=== PATIENT | male | born 1985 | race Caucasian/White ===

== ENCOUNTER 2016-06-09 10:53 | Emergency (ER) | payer OTHER ==
--- NOTE | 2016-06-09 11:35 | DIAGNOSTIC IMAGING REPORT ---
PROCEDURE: XR CHEST 1 VIEW INDICATION: CHEST PAIN TECHNIQUE: Portable AP view 11:26 a.m. COMPARISON: 02/07/2016 FINDINGS: Lungs are clear. Heart and mediastinum are normal. Thorax is normal. IMPRESSION: 1. Negative chest.
--- NOTE | 2016-06-09 13:31 | DIAGNOSTIC IMAGING REPORT ---
PROCEDURE: CTA THORAX WITH CONTRAST INDICATION: CHEST PAIN, initial encounter. TECHNIQUE: 75 ml of Isovue 370 was injected intravenously and axial images were obtained of the entire thorax with 3D sagittal and coronal MIP reconstructions. COMPARISON: Chest x-ray 06/09/2016 FINDINGS: No evidence of pulmonary emboli. Normal lung parenchyma without infiltrates or pneumothorax. No adenopathy or effusion. Residual thymus tissue. Normal thoracic aorta without dissection or aneurysm. Heart size is normal. Visualized upper abdomen is unremarkable. No suspicious osseous lesions. IMPRESSION: 1. Normal CT pulmonary angiogram 2. Results discussed with Dr. Field
--- NOTE | 2016-06-09 15:06 | ED NURSING NOTES ---
Clinical Report - Nurses [facility] [address] [place] [address] 06/09/2016 10:54 Patient: SUNITA HUERTAS TRIAGE Triage time 10:58. Acuity: LEVEL 3. Chief Complaint: CHEST DISCOMFORT and (Seen at [facility] yesterday, Called today for his anxiety, and help with DT's. Reproducible mid-sternal pain.). Alert. No acute distress. IGNACIA COMA SCORE: Harrison Coma Scale: 15- eyes open spontaneously (4); best verbal response- oriented x 4 (5); best motor response- obeys commands (6). --11:06 Nano Aleman R.N. 10:58 06/09/16. BP: 160/92. HR: 107. RR: 18. O2 saturation: 98% on room air. Temp: 98.4 F. Pain level now: 11/05. --11:06 Nano Aleman R.N. Weight: 72.5 kg stated. Height/Length: 70 inches Per Patient. BMI: 22.9. --11:01 Nano Aleman R.N. Medications Keppra Oral. --11:01 Nano Aleman R.N. Medication/allergy information source: the patient. --11:06 Nano Aleman R.N. Allergies Penicillin. (unknown, per pt) --11:01 Nano Aleman R.N. History Arrived by EMS. Historian: patient. Primary physician (skylar). This started today. No difficulty breathing, sweating episodes, nausea or vomiting. Treatment OSS ARCHITECT: EMS treatment OSS ARCHITECT verbally communicated and report reviewed. See report. BP: 160 / 90. HR: 107. RR: 20. O2 saturation: 98 % room air. PAST MEDICAL HX: Immunizations: status is unknown. SOCIAL HX: Alcohol use; consumes a large amount of beer daily. ("I've been on a binge, I need help o stop".). No drug use. FALL RISK ASSESSMENT: Fall risk assessment completed. No fall risk identified. NUTRITIONAL RISK ASSESSMENT: The nutritional risk assessment revealed no deficiencies. FUNCTIONAL ASSESSMENT: Functional assessment: no impairments noted. LEARNING NEEDS ASSESSMENT: The learning needs assessment revealed no barriers. SKIN INTEGRITY ASSESSMENT: Skin integrity risk assessment completed. No skin integrity risk identified. --11:06 Nano Aleman R.N. PROBLEMS: Head Injury. Laceration. Fall. Dental Abscess. Seizure. Anxiety Reaction. Panic Attack. Acute Pain. Otitis Externa. Otitis Media. Ear Infection. Immunizations. Alcohol Intoxication. Substance Abuse. Alcoholism. --11: Nano Aleman R.N. ADDITIONAL SURGERIES: Tympanostomy Tubes. --11:02 Nano Aleman R.N. Interventions ID band on patient. To room. --11:06 Nano Aleman R.N. PHYSICAL ASSESSMENT To room via stretcher. Patient gowned. GENERAL / NEURO / PSYCH: Alert. Oriented X 4. Appears anxious. HEENT: Mucous membranes are pink. RESPIRATORY: Respirations not labored. CVS: Pulses within normal limits. Capillary refill less than 2 seconds. GI / : Abdomen nontender. EXTREMITIES: No lower extremity edema. SKIN: Skin is warm and dry. Normal skin turgor. Skin is non-tender. --11:06 Nano Aleman R.N. NURSING PROGRESS NOTES vehicle monitor technician, pulse oximeter and NIBP monitor placed on patient; monitor technician- Lead II; monitor alarms on. Patient gowned. Head of bed elevated. Call light placed in reach. Side rails up x 2. Bed placed in lowest position. Brakes of bed on. Patient ready for evaluation- chart flagged. --11:07 Nano Aleman R.N. 11:22 06/09/2016 Site #1 started via IV in the right antecubital space with an 18g angiocath, with aseptic technique and good blood return; one attempt. Blood drawn: rainbow set. Labeled in the presence of the patient and sent to the lab. Saline lock flushed with 10 mL saline. --11:27 Miky Cueva R.N. 11:27 06/09/16. Patient ID band checked for patient name and birthdate: patient confirmed. Blood samples drawn from the right antecubital space with Vacutainer 18g by nurse per protocol ; labeled in presence of the patient and sent to lab: rainbow set. Line flushed with 5 mL normal saline post blood draw. --11:27 Melanie Small R.N. 11:51 06/09/2016 Started bag #1 1000 mL IV Fluids IV NS (Saline); bolus of 1000 mL wide open via site #1. Allergies verified and confirmed 5 rights. IV patency established. IV site checked: no pain, redness, or swelling. IV flushed thoroughly pre- and post-medication administration. --11:51 Melanie Small R.N. 11:52 06/09/2016 Zofran (Ondansetron HCl) IVP 4 mg given over 2 minute(s) via site #1. Allergies verified and confirmed 5 rights. IV patency established. IV site checked: no pain, redness, or swelling. IV flushed thoroughly pre- and post-medication administration. IVP given by RN. --11:52 Melanie Small R.N. 13:03 06/09/2016 Valium (Diazepam) IVP 10 mg given over 1 minute(s) via site #1. Allergies verified, confirmed 5 rights and sedative warning given to the patient. IV patency established. IV site checked: no pain, redness, or swelling. IV flushed thoroughly pre- and post-medication administration. IVP given by RN. --13:31 Nano Aleman R.N. Patient returned from CT by stretcher with [employer]. (1300). --13:36 Nano Aleman R.N. ( Patient starting to state, "I need inpatient treatment for alcohol withdrawal".). --13:39 Nano Aleman R.N. 13:58 06/09/16. Patient ID band checked for patient name: patient confirmed. Blood samples drawn from the left forearm by tech per protocol ; labeled in presence of the patient and sent to lab: [facility]. --13:58 Nano Aleman R.N. 13:58 06/09/16. BP: 136/89. HR: 91. RR: 18. O2 saturation: 97% on room air. --13:59 Nano Aleman R.N. Patient ID band checked for patient name and birthdate: patient confirmed. Blood samples drawn by tech per protocol ; labeled in presence of the patient and sent to lab: [facility]. (for 2nd trop.). --14:00 ZoniaCharis, BOB Tech1 ( Patient continues to ask for more anxiety medicine. Leads taken off by the patient, every time staff applies them. Discussed need to keep on.). --14:17 Nano Aleman R.N. ( "I think I had a seizure, I passed out, then woke up confused and dazed".). --15:02 Nano Aleman R.N. 15:02 06/09/16. BP: 110/76. HR: 96. RR: 18. O2 saturation: 97% on room air. --15:02 Nano Aleman R.N. DISPOSITION / DISCHARGE 15:15. Condition at departure: improved. No learning barriers present. Patient verbalized understanding. Written instructions provided in Macedonian. The patient was discharged home. He left the Emergency Department ambulatory and via (Calling for a ride, in waiting room.). Medication list reviewed and validated. --15:26 Nano Aleman R.N. 15:14 06/09/16. BP: 118/76. HR: 85. RR: 18. O2 saturation: 97% on room air. Temp: deferred. Pain level now: 0/10. Additional comments: "I have anxiety". 15:02 06/09/16. BP: 110/76. HR: 96. RR: 18. O2 saturation: 97% on room air. 13:58 06/09/16. BP: 136/89. HR: 91. RR: 18. O2 saturation: 97% on room air. 12:30 06/09/16. BP: 156/87. HR: 88. RR: 18. O2 saturation: 97% on room air. 10:58 06/09/16. BP: 160/92. HR: 107. RR: 18. O2 saturation: 98% on room air. Temp: 98.4 F. Pain level now: 8/10. --15:26 Nano Aleman R.N. Locked/Released at 06/09/2016 15:27 by Nano Aleman R.N.
--- NOTE | 2016-06-09 15:06 | ED CLINICAL REPORT ---
Clinical Report - Physicians/Mid Levels [facility] [address] [place] [address] 06/09/2016 10:54 Patient: SUNITA HUERTAS Time Seen: 1058. Arrived- By ambulance. Historian- patient. HISTORY OF PRESENT ILLNESS Chief Complaint: CHEST PAIN. At its maximum, severity described as moderate. When seen in the E.D., it was gone. Modifying factors. Not worsened by anything. Not relieved by anything. It is described as "pain" and it is described as located in the central chest area. No radiation. This started today, is still present but is better now and is now gone (resolved upon arrival in the emergency department). It was abrupt in onset and has been constant. Onset during rest. No nausea, vomiting, difficulty breathing or diaphoresis. No additional chest pain. Similar symptoms previously: None. Recent medical care: The patient was seen recently in the emergency department (yesterday). REVIEW OF SYSTEMS No fever, chills or skin rash. All systems otherwise negative, except as recorded above. PAST HISTORY See nurses notes. Medications: Keppra Oral. Allergies: Penicillin. (unknown, per pt). SOCIAL HISTORY Never smoker. Alcohol use. No drug use. No recent travel. Is a local resident. FAMILY HISTORY Negative. No history of heart disease. ADDITIONAL NOTES The nursing notes have been reviewed. PHYSICAL EXAM Vital Signs: 06/09/2016 10:58 BP: 160/92. HR: 107. RR: 18. O2 saturation: 98%. Temp: 98.4 F. Pain level now: 8/10. Oxygen saturation normal. Appearance: Alert. Oriented X3. No acute distress. Eyes: Pupils equal, round and reactive to light. Eyes normal inspection. ENT: Ears normal. Nose normal. Pharynx normal. Neck: Normal inspection. Neck supple. CVS: Normal heart rate and rhythm. Heart sounds normal. Pulses normal. Respiratory: No respiratory distress. Breath sounds normal. No rales, rhonchi or wheezes. Abdomen: Soft and nontender. Bowel sounds normal. No mass. Back: Normal external inspection. Skin: Skin warm and dry. Normal skin color. No rash. Normal skin turgor. Extremities: Extremities exhibit normal ROM. No lower extremity edema. LABS, X-RAYS, AND EKG EKG: No acute process. No acute ischemia. Normal EKG. Rate: 104. Tachycardia. Normal P waves. Normal RENETTA. Normal QRS complex. Normal axis. Normal ST and T waves, QT and QTc. sinus tach. The study has been interpreted contemporaneously. The study has been independently viewed by me. The EKG appears to be a good tracing. Chest X-ray: (PROCEDURE: XR CHEST 1 VIEW INDICATION: CHEST PAIN TECHNIQUE: Portable AP view 11:26 a.m. COMPARISON: 02/07/2016 FINDINGS: Lungs are clear. Heart and mediastinum are normal. Thorax is normal. IMPRESSION: 1. Negative chest.). Views: PA. The X-rays were independently viewed by me, interpreted by the radiologist and discussed with the radiologist. Chest CT: (PROCEDURE: CTA THORAX WITH CONTRAST INDICATION: CHEST PAIN, initial encounter. TECHNIQUE: 75 ml of Isovue 370 was injected intravenously and axial images were obtained of the entire thorax with 3D sagittal and coronal MIP reconstructions. COMPARISON: Chest x-ray 06/09/2016 FINDINGS: No evidence of pulmonary emboli. Normal lung parenchyma without infiltrates or pneumothorax. No adenopathy or effusion. Residual thymus tissue. Normal thoracic aorta without dissection or aneurysm. Heart size is normal. Visualized upper abdomen is unremarkable. No suspicious osseous lesions. IMPRESSION: 1. Normal CT pulmonary angiogram). The study was independently viewed by me and interpreted by the radiologist. The study was discussed with the radiologist (via phone and pacs). Laboratory Tests: UA-Culture if indicated: (FUNMI: 06/09/2016 12:25) ( MsgRcvd 06/09/2016 12:42) Final results Test Result Flag Units (Reference) URINE COLOR YELLOW URINE APPEARANCE CLEAR URINE GLUCOSE NEGATIVE (NEGATIVE) URINE BILIRUBIN NEGATIVE (NEGATIVE) URINE KETONE NEGATIVE (NEGATIVE) URINE SPECIFIC GRAVITY 1.015 (1.010-1.030) URINE PH 6.0 (5.0-8.0) URINE PROTEIN 2+ (NEGATIVE) URINE UROBILINOGEN 0.2 EU/dL (0.2-1.0) URINE NITRITE NEGATIVE (NEGATIVE) URINE BLOOD 3+ (NEGATIVE) URINE LEUK ESTERASE NEGATIVE (NEGATIVE) URINE RBC NONE SEEN rbc/hpf (0-1) URINE WBC 0-1 wbc/hpf (0-1) URINE EPITHELIAL CELLS NONE SEEN EPI/hpf (0-5) URINE BACTERIA NONE SEEN (NONE SEEN) URINE COMMENT CULT NOT INDICATED URINE CULTURES ARE SET-UP BASED ON THE FOLLOWING CRITERIA:POSITIVE NITRITEPOSITIVE LEUKOCYTE ESTERASEGREATER THAN 10 WHITE BLOOD CELLSMODERATE (2+) OR GREATER BACTERIA CBC w Diff: (FUNMI: 06/09/2016 11:22) ( [facility] 06/09/2016 11:39) Final results Test Result Flag Units (Reference) WHITE BLOOD COUNT 8.4 K/uL (4.5-11.5) RED BLOOD COUNT 5.14 M/uL (4.50-5.90) HEMOGLOBIN 16.0 gm/dL (13.5-17.5) HEMATOCRIT 47.9 % (41.0-53.0) MEAN CELL VOLUME 93 fL (80-100) MEAN CORPUSCULAR HGB 31 pg (26-34) MEAN CORPUSCULAR HGB CONC 33 g/dL (31-37) RED CELL DISTRIBUTION WIDTH 14.3 % (11.6-14.8) PLATELET COUNT 255 K/uL (150-400) NEUTROPHIL % 81.9 H % (50-75) LYMPH % 11.6 L % (25-40) MONO % 5.1 % (3-14) EOSINOPHIL % 0.8 % (0-4) BASOPHIL % 0.6 % (0-2) PT with INR: (FUNMI: 06/09/2016 11:22) ( MsgRcvd 06/09/2016 11:44) Final results Test Result Flag Units (Reference) INR 0.9 (0.8-1.2) Low Intensity Therapy: INR 1.5-2.0 PT range 18.5-23.1Mod.Intensity Therapy: INR 2.0-3.0 PT range 23.1-31.5High Intensity Therapy: INR 2.5-3.5 PT range 27.4-35.5High Intensity Therapy 2: INR 3.0-4.0 PT range 31.5-39.3 APTT 28 SECONDS (24-34) D-DIMER QUANTITATIVE 3.01 H ug/mLFEU (0.27-0.52) The primary value of this quantitative assay relates toits negative predictive value (i.e. exclusion) of pulmonaryembolism/deep vein thrombosis/DIC.Elevated levels of d-dimer may also occur with:, age, cancer, inflammation, liver disease,post-op, infection, hematoma, coronary disease, peripheralarteriopathy, bleeding disorders and thrombolytic treatment.Results should be correlated with other clinical andradiological data.Testing Methodology: Latex Immunoassay Troponin-I: (FUNMI: 06/09/2016 13:55) ( [facility] 06/09/2016 15:01) Final results Test Result Flag Units (Reference) TROPONIN I 0.05 ng/mL (0.00-1.5) TROPONIN REFERENCE RANGE:<0.1 NEGATIVE0.1-1.5 INDETERMINANT>1.5 POSITIVE Urine Drug Screen: (FUNMI: 06/09/2016 12:25) ( [facility] 06/09/2016 13:12) Final results Test Result Flag Units (Reference) AMPHETAMINE/METHAMPHETAMINE NEGATIVE (NEGATIVE) BARBITURATE NEGATIVE (NEGATIVE) BENZODIAZEPINE POSITIVE H (NEGATIVE) CANNABINOID NEGATIVE (NEGATIVE) COCAINE NEGATIVE (NEGATIVE) ECSTASY NEGATIVE (NEGATIVE) METHADONE NEGATIVE (NEGATIVE) OPIATE NEGATIVE (NEGATIVE) The urine drug screen is a qualitative screening test fordrug overdose and abuse. All screen results should beconsidered as presumptive.Drugs screened for are as follows:BenzodiazepinesCocaineAmphetamines/MetamphetaminesTHC (Tetrahydrocannabinol)OpiatesBarbituratesEcstasyMethadonePositive results are unconfirmed. For confirmation, notifythe lab for the specimen to be sent to the reference lab.All confirmations must be performed by a differentmethodology.The ingestion of natural herbal and plant productscontaining Ephedra/Ephedra metabolites can produce in urineone or more substances capable of cross reacting withamphetamine/methamphetamine immunoassays. These testsprovide a preliminary result only. A more specificalternative chemical method must be used to obtain aconfirmed analytical result. BNP: (FUNMI: 06/09/2016 11:22) ( MsgRcvd 06/09/2016 11:51) Final results Test Result Flag Units (Reference) B-TYPE NATRIURETIC PEPTIDE < 5.0 L pg/ml (5-100) CMP: (FUNMI: 06/09/2016 11:22) ( MsgRcvd 06/09/2016 12:04) Final results Test Result Flag Units (Reference) GLUCOSE 99 mg/dL (70-110) BUN 7 mg/dL (7-18) CREATININE 0.8 mg/dL (0.6-1.3) Estimated GFR >60 mL/min Estimated GFR- >60 mL/min Note: Persistent reduction over 3 months in eGFR<60 mL/min/1.73 m2 defines CKD. Patients with eGFR values>=60 mL/min/1.73 m2 may also have CKD if evidence ofpersistent proteinuria. Additional information may be foundat www.kidney.org. SODIUM 140 mmol/L (136-145) POTASSIUM 3.8 mmol/L (3.5-5.1) CHLORIDE 100 mmol/L (98-107) CARBON DIOXIDE 28 mmol/L (21-32) CALCIUM 8.7 mg/dL (8.5-10.1) TOTAL PROTEIN 8.3 H g/dL (6.4-8.2) ALBUMIN 4.3 g/dL (3.3-5.0) BILIRUBIN, TOTAL 0.4 mg/dL (0.0-1.0) ALKALINE PHOSPHATASE 67 U/L (46-116) AST (SGOT) 278 H U/L (15-37) ALT (SGPT) 156 H U/L (12-78) TROPONIN I <0.05 ng/mL (0.00-1.5) TROPONIN REFERENCE RANGE:<0.1 NEGATIVE0.1-1.5 INDETERMINANT>1.5 POSITIVE . PROGRESS AND PROCEDURES Course of Care: patient is a 30 yo male with hx of alcohol dependence presenting for evaluation of chest pain. Patient reports also having "DTs." When asked to clarify what he means, patient explained he is having "delirium tremens." Medically patient does not have this clinical presentation. Patient does not have autonomic instability and is not altered. He is able to tell me where his is, who the president is, place, and time. Spoke with patient about controlled substances in the ED. Patient agreed that if he cooperates with checking on his heart and lungs, he would be allowed to have a dose of valium. Other than tachycardia, no other signs of withdrawal noted. patient yelling "take the fucking IV out! The doctor isn't doing anything for me." Reminded patient about what our agreement was when he first came in. Security called for patient's escalating aggressive behavior. Patient reporting seizure. States he went out of it then woke up. Not post-ictal. No loss of continence. Has been sinus on the monitor. No tachycardia throughout the entire reported event. No tongue injury. Do not feel patient had a seizure. Suspect secondary gain. CT angio negative. Do not feel pain due to PE work up for troponin x 2 is negative. did have to call lab to check on results as they did not result in a timely manor. Do not feel patient is having an AMI or PE. Patient is stable for outpatient treatment and management. Resources provided for alcohol abuse. Disposition: Discharged. Condition: good. CLINICAL IMPRESSION Chest pain characterized as "discomfort" .12 lead EKG performed. 06/09/2016 13:58 BP: 136/89. HR: 91. RR: 18. O2 saturation: 97%. Blood pressure normal. Oxygen saturation normal. Alcohol withdrawal with agitation (acute). INSTRUCTIONS (Please contact your local AA. Help is available if are willing to accept it.). Warnings: GENERAL WARNINGS: Return or contact your physician immediately if your condition worsens or changes unexpectedly, if not improving as expected, or if other problems arise. SPECIFICALLY, return if you develop chest, neck, jaw, shoulder, arm, or back pain, difficulty breathing, a fluttering sensation in your chest, lightheadedness, fainting, excessive fatigue, or sudden sweating. Your Current Medications: CONTINUE TAKING THE FOLLOWING MEDICATIONS: Keppra Oral. Follow-up: Return to the emergency department as needed. Follow up with a merchandise flow associate in three days. Reason for referral: recheck today's concerns. Follow up with your doctor in two days. Reason for referral: recheck today's concerns. Summary of care provided to patient via paper. Screening today revealed the patient's blood pressure to be in the normal range. The patient should follow up with a primary care provider for blood pressure management. Understanding of the discharge instructions verbalized by patient. Follow-up with: [facility], , , [address] [place] [address], , [place], Follow up. Reason for referral: contact if you do not have a primary care doctor. Summary of care provided to patient via paper. (Electronically signed by Wayne Field Dr. 06/09/2016 15:49)
--- NOTE | 2016-06-09 15:06 | ED ORDER SUMMARY ---
..... Patient: SUNITA HUERTAS OrderSheet [facility] VisitID: [id number] [place] [address] 30y, M Registration Date/Time: 06/09/2016 ORDER SHEET Weight: 72.5 kg (stated) Allergies: Penicillin GENERAL ORDERS: Chest 1V Urgent (10:57 06/09/2016 Kaykay Scott) (Ack 11:00 KHoerner) (11:45 RFay) Requirements Manager (Continuous) (CP) (10:57 06/09/2016 Kaykay Scott) (Ack 10:59 KHoerner) (11:01 MWinterer R.N.) CBC w Diff Urgent (10:58 06/09/2016 Kaykay Scott) (Ack 10:59 KHoerner) (11:27 KWilliams R.N.) CMP Urgent (10:58 06/09/2016 Kaykay Scott) (Ack 10:59 KHoerner) (11:27 KWilliams R.N.) UA-Culture if indicated Urgent (10:58 06/09/2016 Kaykay Scott) (Ack 10:59 KHoerner) (12:57 SRoberts R.N.) PT with INR Urgent (10:58 06/09/2016 Kaykay Scott) (Ack 11:00 KHoerner) (11:27 KWilliams R.N.) PTT Urgent (10:58 06/09/2016 Kaykay Scott) (Ack 11:00 KHoerner) (11:27 KWilliams R.N.) Troponin-I Urgent (10:58 06/09/2016 Kaykay Scott) (Ack 11:00 KHoerner) (11:27 GUILHERMEilliams R.N.) D-Dimer Urgent (10:58 06/09/2016 Kaykay Scott) (Ack 11:00 KHoerner) (11:27 KWilliams R.N.) BNP Urgent (10:58 06/09/2016 Kaykay Scott) (Ack 11:00 KHoerner) (11:27 KWilliams R.N.) Urine Drug Screen Urgent (10:58 06/09/2016 Kaykay Scott) (Ack 11:00 KHoerner) (12:57 SRgraham R.N.) Pulse oximeter (10:58 06/09/2016 Kaykay Scott) (Ack 10:59 KHoerner) (11:01 MWinterer R.N.) EKG - ER Stat (10:58 06/09/2016 Kaykay Scott) (Ack 10:59 KHoerner) (11:08 SRgraham R.N.) (11:08 KHoerner) NPO (10:58 06/09/2016 Kaykay Scott) (Ack 10:59 DARRICKoerner) (11:01 MWinterer R.N.) CTA Thorax w Cont (No) (gfr > 60) Urgent (12:41 06/09/2016 Kaykay Scott) (Ack 12:45 DARRICKoerner) (13:12 RFay) Troponin-I (july draw now) Urgent (13:39 06/09/2016 Kaykay Scott) (Ack 13:40 KHoerner) (13:59 LNations ER Tech1) MEDICATION ORDERS: IV FLUIDS: IV Saline Lock (10:58 06/09/2016 Kaykay Scott) (Ack 11:08 Sterling R.N.) (11:27 Jayant R.N.) IV NS : initial bolus 1000 mL (1000 mL/hr), then none - for X1 (NOW) (11:07 06/09/2016 aKykay Scott) (Ack 11:08 Sterling R.N.) (11:51 Rosemary R.N.) Zofran IV 4 mg (NOW) (11:40 06/09/2016 Kaykay Scott) (Ack 11:45 Sterling R.N.) (11:52 Rosemary R.N.) Valium IV 10 mg (HIGH ALERT MEDICATION, NOW) (12:41 06/09/2016 Kaykay Scott) (Ack 12:56 Sterling R.N.) (13:31 Sterling R.N.) ORDER SHEET NOTES: [Electronically signed by Nano Aleman R.N. (15:27 06/09/2016)] [Electronically signed by Wayne Field Dr. (15:49 06/09/2016)] [Electronically locked/signed by Nano Aleman R.N. (15:06/09/2016)]
--- NOTE | 2016-06-09 15:06 | ED ORDER SUMMARY ---
..... Patient: SUNITA HUERTAS OrderSheet [facility] VisitID: [id number] [place] [address] 30y, M Registration Date/Time: 06/09/2016 ORDER SHEET Weight: 72.5 kg (stated) Allergies: Penicillin GENERAL ORDERS: Chest 1V Urgent (10:57 06/09/2016 Kyakay Scott) (Ack 11:00 KHoerner) (11:45 RFay) Policy Director (Continuous) (CP) (10:57 06/09/2016 Kaykay Scott) (Ack 10:59 KHoerner) (11:01 MWinterer R.N.) CBC w Diff Urgent (10:58 06/09/2016 Kaykay Scott) (Ack 10:59 KHoerner) (11:27 KWilliams R.N.) CMP Urgent (10:58 06/09/2016 Kaykay Scott) (Ack 10:59 KHoerner) (11:27 KWilliams R.N.) UA-Culture if indicated Urgent (10:58 06/09/2016 Kaykay Scott) (Ack 10:59 KHoerner) (12:57 SRoberts R.N.) PT with INR Urgent (10:58 06/09/2016 Kaykay Scott) (Ack 11:00 KHoerner) (11:27 KWilliams R.N.) PTT Urgent (10:58 06/09/2016 Kaykay Scott) (Ack 11:00 KHoerner) (11:27 KWilliams R.N.) Troponin-I Urgent (10:58 06/09/2016 Kaykay Scott) (Ack 11:00 KHoerner) (11:27 GUILHERMEilliams R.N.) D-Dimer Urgent (10:58 06/09/2016 Kaykay Scott) (Ack 11:00 KHoerner) (11:27 KWilliams R.N.) BNP Urgent (10:58 06/09/2016 Kaykay Scott) (Ack 11:00 KHoerner) (11:27 KWilliams R.N.) Urine Drug Screen Urgent (10:58 06/09/2016 Kayaky Scott) (Ack 11:00 KHoerner) (12:57 SRgraham R.N.) Pulse oximeter (10:58 06/09/2016 Kaykay Scott) (Ack 10:59 KHoerner) (11:01 MWinterer R.N.) EKG - ER Stat (10:58 06/09/2016 Kaykay Scott) (Ack 10:59 KHoerner) (11:08 SRgraham R.N.) (11:08 KHoerner) NPO (10:58 06/09/2016 Kaykay Scott) (Ack 10:59 DARRICKoerner) (11:01 MWinterer R.N.) CTA Thorax w Cont (No) (gfr > 60) Urgent (12:41 06/09/2016 Kaykay Scott) (Ack 12:45 DARRICKoerner) (13:12 RFay) Troponin-I (july draw now) Urgent (13:39 06/09/2016 Kaykay Scott) (Ack 13:40 KHoerner) (13:59 LNations ER Tech1) MEDICATION ORDERS: IV FLUIDS: IV Saline Lock (10:58 06/09/2016 Kaykay Scott) (Ack 11:08 Sterling R.N.) (11:27 Jayant R.N.) IV NS : initial bolus 1000 mL (1000 mL/hr), then none - for X1 (NOW) (11:07 06/09/2016 Kaykay Scott) (Ack 11:08 Sterling R.N.) (11:51 Rosemary R.N.) Zofran IV 4 mg (NOW) (11:40 06/09/2016 Kaykay Scott) (Ack 11:45 Sterling R.N.) (11:52 Rosemary R.N.) Valium IV 10 mg (HIGH ALERT MEDICATION, NOW) (12:41 06/09/2016 Kaykay Scott) (Ack 12:56 Sterling R.N.) (13:31 Sterling R.N.) ORDER SHEET NOTES: [Electronically signed by Nano Aleman R.N. (15:27 06/09/2016)] [Electronically signed by Wayne Field Dr. (15:49 06/09/2016)] [Electronically locked/signed by Nano Aleman R.N. (15:06/09/2016)]
--- NOTE | 2016-06-09 15:06 | ED NURSING NOTES ---
Clinical Report - Nurses [facility] [address] [place] [address] 06/09/2016 10:54 Patient: SUNITA HUERTAS TRIAGE Triage time 10:58. Acuity: LEVEL 3. Chief Complaint: CHEST DISCOMFORT and (Seen at [place] yesterday, Called today for his anxiety, and help with DT's. Reproducible mid-sternal pain.). Alert. No acute distress. IGNACIA COMA SCORE: Velva Coma Scale: 15- eyes open spontaneously (4); best verbal response- oriented x 4 (5); best motor response- obeys commands (6). --11:06 Nano Aleman R.N. 10:58 06/09/16. BP: 160/92. HR: 107. RR: 18. O2 saturation: 98% on room air. Temp: 98.4 F. Pain level now: 11/05. --11:06 Nano Aleman R.N. Weight: 72.5 kg stated. Height/Length: 70 inches Per Patient. BMI: 22.9. --11:01 Nano Aleman R.N. Medications Keppra Oral. --11:01 Nano Aleman R.N. Medication/allergy information source: the patient. --11:06 Nano Aleman R.N. Allergies Penicillin. (unknown, per pt) --11:01 Nano Aleman R.N. History Arrived by EMS. Historian: patient. Primary physician (skylar). This started today. No difficulty breathing, sweating episodes, nausea or vomiting. Treatment UNATTENDED GROUND SENSOR SPECIALIST: EMS treatment UNATTENDED GROUND SENSOR SPECIALIST verbally communicated and report reviewed. See report. BP: 160 / 90. HR: 107. RR: 20. O2 saturation: 98 % room air. PAST MEDICAL HX: Immunizations: status is unknown. SOCIAL HX: Alcohol use; consumes a large amount of beer daily. ("I've been on a binge, I need help o stop".). No drug use. FALL RISK ASSESSMENT: Fall risk assessment completed. No fall risk identified. NUTRITIONAL RISK ASSESSMENT: The nutritional risk assessment revealed no deficiencies. FUNCTIONAL ASSESSMENT: Functional assessment: no impairments noted. LEARNING NEEDS ASSESSMENT: The learning needs assessment revealed no barriers. SKIN INTEGRITY ASSESSMENT: Skin integrity risk assessment completed. No skin integrity risk identified. --11:06 Nano Aleman R.N. PROBLEMS: Head Injury. Laceration. Fall. Dental Abscess. Seizure. Anxiety Reaction. Panic Attack. Acute Pain. Otitis Externa. Otitis Media. Ear Infection. Immunizations. Alcohol Intoxication. Substance Abuse. Alcoholism. --11: Nano Aleman R.N. ADDITIONAL SURGERIES: Tympanostomy Tubes. --11:02 Nano Aleman R.N. Interventions ID band on patient. To room. --11:06 Nano Aleman R.N. PHYSICAL ASSESSMENT To room via stretcher. Patient gowned. GENERAL / NEURO / PSYCH: Alert. Oriented X 4. Appears anxious. HEENT: Mucous membranes are pink. RESPIRATORY: Respirations not labored. CVS: Pulses within normal limits. Capillary refill less than 2 seconds. GI / : Abdomen nontender. EXTREMITIES: No lower extremity edema. SKIN: Skin is warm and dry. Normal skin turgor. Skin is non-tender. --11:06 Nano Aleman R.N. NURSING PROGRESS NOTES air sampling and monitoring, pulse oximeter and NIBP monitor placed on patient; cardiac monitor technician- Lead II; monitor alarms on. Patient gowned. Head of bed elevated. Call light placed in reach. Side rails up x 2. Bed placed in lowest position. Brakes of bed on. Patient ready for evaluation- chart flagged. --11:07 Nano Aleman R.N. 11:22 06/09/2016 Site #1 started via IV in the right antecubital space with an 18g angiocath, with aseptic technique and good blood return; one attempt. Blood drawn: rainbow set. Labeled in the presence of the patient and sent to the lab. Saline lock flushed with 10 mL saline. --11:27 Miky Cueva R.N. 11:27 06/09/16. Patient ID band checked for patient name and birthdate: patient confirmed. Blood samples drawn from the right antecubital space with Vacutainer 18g by nurse per protocol ; labeled in presence of the patient and sent to lab: rainbow set. Line flushed with 5 mL normal saline post blood draw. --11:27 Melanie Small R.N. 11:51 06/09/2016 Started bag #1 1000 mL IV Fluids IV NS (Saline); bolus of 1000 mL wide open via site #1. Allergies verified and confirmed 5 rights. IV patency established. IV site checked: no pain, redness, or swelling. IV flushed thoroughly pre- and post-medication administration. --11:51 Melanie Small R.N. 11:52 06/09/2016 Zofran (Ondansetron HCl) IVP 4 mg given over 2 minute(s) via site #1. Allergies verified and confirmed 5 rights. IV patency established. IV site checked: no pain, redness, or swelling. IV flushed thoroughly pre- and post-medication administration. IVP given by RN. --11:52 Melanie Small R.N. 13:03 06/09/2016 Valium (Diazepam) IVP 10 mg given over 1 minute(s) via site #1. Allergies verified, confirmed 5 rights and sedative warning given to the patient. IV patency established. IV site checked: no pain, redness, or swelling. IV flushed thoroughly pre- and post-medication administration. IVP given by RN. --13:31 Nano Aleman R.N. Patient returned from CT by stretcher with V-Key. (1300). --13:36 Nano Aleman R.N. ( Patient starting to state, "I need inpatient treatment for alcohol withdrawal".). --13:39 Nano Aleman R.N. 13:58 06/09/16. Patient ID band checked for patient name: patient confirmed. Blood samples drawn from the left forearm by tech per protocol ; labeled in presence of the patient and sent to lab: [facility]). --13:58 Nano Aleman R.N. 13:58 06/09/16. BP: 136/89. HR: 91. RR: 18. O2 saturation: 97% on room air. --13:59 Nano Aleman R.N. Patient ID band checked for patient name and birthdate: patient confirmed. Blood samples drawn by tech per protocol ; labeled in presence of the patient and sent to lab: [facility]. (for 2nd trop.). --14:00 ZoniaCharis, BOB Tech1 ( Patient continues to ask for more anxiety medicine. Leads taken off by the patient, every time staff applies them. Discussed need to keep on.). --14:17 Nano Aleman R.N. ( "I think I had a seizure, I passed out, then woke up confused and dazed".). --15:02 Nano Aleman R.N. 15:02 06/09/16. BP: 110/76. HR: 96. RR: 18. O2 saturation: 97% on room air. --15:02 Nano Aleman R.N. DISPOSITION / DISCHARGE 15:15. Condition at departure: improved. No learning barriers present. Patient verbalized understanding. Written instructions provided in Bel[place]ian. The patient was discharged home. He left the Emergency Department ambulatory and via (Calling for a ride, in waiting room.). Medication list reviewed and validated. --15:26 Nano Aleman R.N. 15:14 06/09/16. BP: 118/76. HR: 85. RR: 18. O2 saturation: 97% on room air. Temp: deferred. Pain level now: 0/10. Additional comments: "I have anxiety". 15:02 06/09/16. BP: 110/76. HR: 96. RR: 18. O2 saturation: 97% on room air. 13:58 06/09/16. BP: 136/89. HR: 91. RR: 18. O2 saturation: 97% on room air. 12:30 06/09/16. BP: 156/87. HR: 88. RR: 18. O2 saturation: 97% on room air. 10:58 06/09/16. BP: 160/92. HR: 107. RR: 18. O2 saturation: 98% on room air. Temp: 98.4 F. Pain level now: 8/10. --15:26 Nano Aleman R.N. Locked/Released at 06/09/2016 15:27 by Nano Aleman R.N.
--- NOTE | 2016-06-09 15:49 | ED MAR SUMMARY ---
..... Medication Administration Record [facility] [address] [place] [address] Patient: SUNITA HUERTAS Visit ID: [id number] 30y, M Weight: 72.5 kg Height/Length: 70 in BMI: 22.9 ALLERGIES: Penicillin Start 11:51 06/09/2016 Melanie Small R.N. Medication Administered: IV NS (SALINE), Dose: IV Fluids, Bolus: 1000 mL wide open, Dispensed: 1000 mL bag, Site: #1 right AC. Medication Ordered: IV NS : initial bolus 1000 mL (1000 mL/hr), then none - for X1 (NOW). Given 11:52 06/09/2016 Melanie Small R.N. Medication Administered: ZOFRAN [IVP] (ONDANSETRON HCL), Dose: 4 mg IVP over 2 minute(s), Site: #1 right AC. Medication Ordered: Zofran IV 4 mg (NOW). Given 13:03 06/09/2016 Nano Aleman R.N. Medication Administered: VALIUM [IVP] (DIAZEPAM), Dose: 10 mg IVP over 1 minute(s), Site: #1 right AC. Medication Ordered: Valium IV 10 mg (HIGH ALERT MEDICATION, NOW).
--- NOTE | 2016-06-09 15:49 | ED MAR SUMMARY ---
..... Medication Administration Record [facility] [address] [place] [address] Patient: SUNITA HUERTAS Visit ID: [id number] 30y, M Weight: 72.5 kg Height/Length: 70 in BMI: 22.9 ALLERGIES: Penicillin Start 11:51 06/09/2016 Melanie Small R.N. Medication Administered: IV NS (SALINE), Dose: IV Fluids, Bolus: 1000 mL wide open, Dispensed: 1000 mL bag, Site: #1 right AC. Medication Ordered: IV NS : initial bolus 1000 mL (1000 mL/hr), then none - for X1 (NOW). Given 11:52 06/09/2016 Melanie Small R.N. Medication Administered: ZOFRAN [IVP] (ONDANSETRON HCL), Dose: 4 mg IVP over 2 minute(s), Site: #1 right AC. Medication Ordered: Zofran IV 4 mg (NOW). Given 13:03 06/09/2016 Nano Aleman R.N. Medication Administered: VALIUM [IVP] (DIAZEPAM), Dose: 10 mg IVP over 1 minute(s), Site: #1 right AC. Medication Ordered: Valium IV 10 mg (HIGH ALERT MEDICATION, NOW).
--- NOTE | 2016-06-09 15:49 | ED MED RECONCILIATION SUMMARY ---
Patient: SUNITA HUERTAS Medication Reconciliation Report [facility] VisitID: [id number] [address] [place] [address] 30y, M Registration Date/Time: 06/09/2016 Weight: 72.5 kg Height/Length: 70 in. BMI: 22.9 ALLERGIES: Penicillin The patient's Home Medications are listed below: CONTINUE TAKING THE FOLLOWING MEDICATIONS: Keppra Oral The source(s) of the original Home Medication information: patient The following Medications were given to the patient in the Emergency Department: IV NS IV Fluids bolus 1000 mL wide open, administered: 06/09/2016 11:51:00 AM Zofran [IVP] IVP 4 mg, administered: 06/09/2016 11:52:00 AM Valium [IVP] IVP 10 mg, administered: 06/09/2016 1:03:00 PM The following Medications were prescribed to the patient: None.
--- NOTE | 2016-06-09 15:49 | ED DISCHARGE INSTRUCTIONS ---
Patient: SUNITA HUERTAS General Instructions [facility] VisitID: [id number] [place] [address] 30y, M Registration Date/Time: 06/09/2016 Chest pain characterized as "discomfort" .12 lead EKG performed. 06/09/2016 13:58 BP: 136/89. HR: 91. RR: 18. O2 saturation: 97%. Blood pressure normal. Oxygen saturation normal. Alcohol withdrawal with agitation (acute). INSTRUCTIONS (Please contact your local AA. Help is available if are willing to accept it.). Warnings: GENERAL WARNINGS: Return or contact your physician immediately if your condition worsens or changes unexpectedly, if not improving as expected, or if other problems arise. SPECIFICALLY, return if you develop chest, neck, jaw, shoulder, arm, or back pain, difficulty breathing, a fluttering sensation in your chest, lightheadedness, fainting, excessive fatigue, or sudden sweating. Your Current Medications: CONTINUE TAKING THE FOLLOWING MEDICATIONS: Keppra Oral. Follow-up: Return to the emergency department as needed. Follow up with a street supervisor in three days. Reason for referral: recheck today's concerns. Follow up with your doctor in two days. Reason for referral: recheck today's concerns. Summary of care provided to patient via paper. Screening today revealed the patient's blood pressure to be in the normal range. The patient should follow up with a primary care provider for blood pressure management. Understanding of the discharge instructions verbalized by patient. Follow-[facility] with: [facility], , , [address] [facility], , [place], Follow up. Reason for referral: contact if you do not have a primary care doctor. Summary of care provided to patient via paper. ADDITIONAL INFORMATION Chest Pain, Uncertain Cause Chest pain can happen for a number of reasons. Sometimes the cause can not be determined. If yourcondition does not seem serious, and your pain does not appear to be coming from your heart, your doctor may recommend watching it closely. Sometimes the signs of a serious problem take more time to appear. Therefore, watch for the warning signs listed below. Home care After your visit, follow these recommendations: Rest today and avoid strenuous activity. Take any prescribed medicine as directed. Follow-up care Follow up with your doctor or this facility as instructed or if you do not start to feel better within 24 hours. Call 911 Get immediate medical attention if any of the following occur: A change in the type of pain: if it feels different, becomes more severe, lasts longer, or begins to spread into your shoulder, arm, neck, jaw or back Shortness of breath or increased pain with breathing Weakness, dizziness, or fainting Rapid heart beat Get prompt medical attention Call your doctor right away if any of the following occur: Cough with dark colored sputum (phlegm) or blood Fever of 100.4F(38C) or higher, or as directed by your health care provider Swelling, pain or redness in one leg Alcohol Withdrawal Alcohol withdrawal symptoms occur if you have been drinking steadily for at least several days, and your body gets used to the effect of alcohol. When you suddenly stop drinking (or, even just cut down your daily intake but continue to drink), you may develop alcohol withdrawal, also called the The usual symptoms last 3-4 days and include nervousness, shakiness, nausea, sweating, sleeplessness. In severe cases hallucinations (seeing things that are not there) and seizures can occur. Home Care: You will need plenty of rest and fluids over the next several days. Eat regular meals. Of course, do not drink any more alcohol. During this time, it is best that you stay with family or friends who can help and support you. You can also admit yourself to a residential detox program. Do not drive until all symptoms are gone and you are feeling better. If you were given sedative medication to reduce your symptoms, do not take it more often than prescribed and never take it with alcohol. Follow Up: Once you have gone through the withdrawal symptoms, you have fought half of the henning. To avoid the risk of returning to your previous drinking pattern, it is essential that you get follow-up support and treatment. Alcoholics Anonymous offers support through a self-help fellowship. There are no dues or fees. See the Yellow Pages and call for time and place of meetings. www.aa.org [employer] offers support to families of alcohol users. 471.737.9181 www.al-anon.org National [place] On Alcoholism And Drug Dependence 468-403-0969 www.ncadd.org Residential alcohol detox programs are available. Check the Yellow Pages under Drug Abuse & Treatment Centers. Get Prompt Medical Attention if any of the following occur: Severe shakiness Hallucinations Seizure Fever over 100.5 F (38.0 C) oral Headache, confusion, extreme drowsiness, inability to awaken Increasing upper abdominal pain Repeated vomiting or vomiting blood You have been given the following additional information: Chest Pain, Uncertain Cause Alcohol Withdrawal (Electronically signed by Wayne Field Dr. 06/09/2016 15:49)
--- NOTE | 2016-06-09 15:49 | ED DISCHARGE INSTRUCTIONS ---
Patient: SUNITA HUERTAS General Instructions [facility] VisitID: [id number] [place] [address] 30y, M Registration Date/Time: 06/09/2016 Chest pain characterized as "discomfort" .12 lead EKG performed. 06/09/2016 13:58 BP: 136/89. HR: 91. RR: 18. O2 saturation: 97%. Blood pressure normal. Oxygen saturation normal. Alcohol withdrawal with agitation (acute). INSTRUCTIONS (Please contact your local AA. Help is available if are willing to accept it.). Warnings: GENERAL WARNINGS: Return or contact your physician immediately if your condition worsens or changes unexpectedly, if not improving as expected, or if other problems arise. SPECIFICALLY, return if you develop chest, neck, jaw, shoulder, arm, or back pain, difficulty breathing, a fluttering sensation in your chest, lightheadedness, fainting, excessive fatigue, or sudden sweating. Your Current Medications: CONTINUE TAKING THE FOLLOWING MEDICATIONS: Keppra Oral. Follow-up: Return to the emergency department as needed. Follow up with a fiber optic technician in three days. Reason for referral: recheck today's concerns. Follow up with your doctor in two days. Reason for referral: recheck today's concerns. Summary of care provided to patient via paper. Screening today revealed the patient's blood pressure to be in the normal range. The patient should follow up with a primary care provider for blood pressure management. Understanding of the discharge instructions verbalized by patient. Follow-up with: [facility], , , [address] [facility], , [place], Follow up. Reason for referral: contact if you do not have a primary care doctor. Summary of care provided to patient via paper. ADDITIONAL INFORMATION Chest Pain, Uncertain Cause Chest pain can happen for a number of reasons. Sometimes the cause can not be determined. If yourcondition does not seem serious, and your pain does not appear to be coming from your heart, your doctor may recommend watching it closely. Sometimes the signs of a serious problem take more time to appear. Therefore, watch for the warning signs listed below. Home care After your visit, follow these recommendations: Rest today and avoid strenuous activity. Take any prescribed medicine as directed. Follow-up care Follow up with your doctor or this facility as instructed or if you do not start to feel better within 24 hours. Call 911 Get immediate medical attention if any of the following occur: A change in the type of pain: if it feels different, becomes more severe, lasts longer, or begins to spread into your shoulder, arm, neck, jaw or back Shortness of breath or increased pain with breathing Weakness, dizziness, or fainting Rapid heart beat Get prompt medical attention Call your doctor right away if any of the following occur: Cough with dark colored sputum (phlegm) or blood Fever of 100.4F(38C) or higher, or as directed by your health care provider Swelling, pain or redness in one leg Alcohol Withdrawal Alcohol withdrawal symptoms occur if you have been drinking steadily for at least several days, and your body gets used to the effect of alcohol. When you suddenly stop drinking (or, even just cut down your daily intake but continue to drink), you may develop alcohol withdrawal, also called the The usual symptoms last 3-4 days and include nervousness, shakiness, nausea, sweating, sleeplessness. In severe cases hallucinations (seeing things that are not there) and seizures can occur. Home Care: You will need plenty of rest and fluids over the next several days. Eat regular meals. Of course, do not drink any more alcohol. During this time, it is best that you stay with family or friends who can help and support you. You can also admit yourself to a residential detox program. Do not drive until all symptoms are gone and you are feeling better. If you were given sedative medication to reduce your symptoms, do not take it more often than prescribed and never take it with alcohol. Follow Up: Once you have gone through the withdrawal symptoms, you have fought half of the henning. To avoid the risk of returning to your previous drinking pattern, it is essential that you get follow-up support and treatment. Alcoholics Anonymous offers support through a self-help fellowship. There are no dues or fees. See the Yellow Pages and call for time and place of meetings. www.aa.org [employer] offers support to families of alcohol users. 171.824.5379 www.al-anon.org National [place] On Alcoholism And Drug Dependence 744-549-5093 www.ncadd.org Residential alcohol detox programs are available. Check the Yellow Pages under Drug Abuse & Treatment Centers. Get Prompt Medical Attention if any of the following occur: Severe shakiness Hallucinations Seizure Fever over 100.5 F (38.0 C) oral Headache, confusion, extreme drowsiness, inability to awaken Increasing upper abdominal pain Repeated vomiting or vomiting blood You have been given the following additional information: Chest Pain, Uncertain Cause Alcohol Withdrawal (Electronically signed by Wayne Field Dr. 06/09/2016 15:49)
--- NOTE | 2016-06-09 15:49 | ED MED RECONCILIATION SUMMARY ---
Patient: SUNITA HUERTAS Medication Reconciliation Report [facility] VisitID: [id number] [address] [place] [address] 30y, M Registration Date/Time: 06/09/2016 Weight: 72.5 kg Height/Length: 70 in. BMI: 22.9 ALLERGIES: Penicillin The patient's Home Medications are listed below: CONTINUE TAKING THE FOLLOWING MEDICATIONS: Keppra Oral The source(s) of the original Home Medication information: patient The following Medications were given to the patient in the Emergency Department: IV NS IV Fluids bolus 1000 mL wide open, administered: 06/09/2016 11:51:00 AM Zofran [IVP] IVP 4 mg, administered: 06/09/2016 11:52:00 AM Valium [IVP] IVP 10 mg, administered: 06/09/2016 1:03:00 PM The following Medications were prescribed to the patient: None.
== END 2016-06-09 15:15 | disposition home or self-care (01) ==
LOC: ED SRH 10:53
DX: R07.9 Chest pain, unspecified (principal); F10.239 Alcohol dependence with withdrawal, unspecified; R45.1 Restlessness and agitation; Z88.0 Allergy status to penicillin
CPT/HCPCS: 90004; 90100; 90616; 91320; 91556; 92760; 92761; 92762; 92763; 92764; 92765; 92766; 92767; 94001; 94060; 95059